=== PATIENT | male | born 1990 | race Caucasian/White ===

== ENCOUNTER 2017-10-03 13:50 | Emergency (ER) | payer OTHER ==
[~2017-10-03 13:50] MED LIST: IBU200 PO
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
[2017-10-03] MEDS ORDERED: IBUPROFEN 600 MG TAB PO ONE (14:10)
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
[2017-10-03] MEDS ORDERED: OXYC-373 PO (17:02)
[2017-10-03] MEDS ORDERED: IBUP600T22 PO (17:02)
--- NOTE | 2017-10-03 18:13 | RADIOLOGY IMAGING REPORT ---
FACILITY: [facility] - [place] PATIENT NAME: Jose Blount : 1990 MR: [id number] V: [id number] EXAM DATE: ORDERING PHYSICIAN: TORITO BALLARD TECHNOLOGIST: Location: [facility] Patient: Jose Blount : 1990 Visit/Account:[id number] Date of Sevice: 10/03/2017 EXAMINATION: CT left tibia and fibula without IV contrast HISTORY: Tibial plateau fracture. TECHNIQUE: Thin axial CT images of the left tibia and fibula were obtained without IV contrast, fro m the knee to the ankle, with coronal and sagittal 2D reconstructed images. One of the following dose optimization techniques was utilized in the performance of this exam: Autom ated exposure control; adjustment of the mA and/or kV according to the patient's size; or use of an i terative reconstruction technique. Specific details can be referenced in the facility's radiology C T exam operational policy. COMPARISON: Left knee and ankle radiographs of earlier today. FINDINGS: There is a fracture along the posterior margin of the lateral tibial plateau. Fracture fragment measu res 0.5 x 1.5 cm along the articular surface (AP x Trans). Slight impaction along the articular surfa ce measuring 1-2 mm. No extension into the tibial spines. The medial tibial plateau is intact. Partia lly visualized portions of the femoral condyles appear intact, but are only partially imaged. No evidence of additional fracture along the distal tibia or fibula. Normal alignment at the left ank le. Normal mineralization. IMPRESSION: 1. Minimally impacted fracture along the posterior margin of the lateral tibial plateau. 2. No evidence of additional fracture along the remainder of the left tibia or fibula. Report Dictated By: Mendoza Dallas MD at 10/03/2017 5:58 PM Report E-Signed By: Mendoza Dallas MD at 10/03/2017 6:08 PM WSN:[id number]
[2017-10-03 18:29] VITALS: BP 110/79
== END 2017-10-03 18:39 | disposition home or self-care (01) ==
LOC: ER 14:07
DX: S42.021A Displaced fracture of shaft of right clavicle, initial encounter for closed fracture (principal); S82.142A Displaced bicondylar fracture of left tibia, initial encounter for closed fracture
CPT/HCPCS: 71046; 99284; A4565

== ENCOUNTER → 2017-11-07 | Outpatient (CLI) | payer OTHER ==
[~2017-11-07] MED LIST changes: +IBUP600T22 PO; +OXYC-373 PO
== END ==
LOC: LAB 08:35
PROVIDERS: ATTEND Orthopaedic Surgery
DX: Z98.890 Other specified postprocedural states (principal)
CPT/HCPCS: 36415; 82040; 82247; 82310; 82374; 82435; 82565; 82947; 84075; 84132; 84155; 84295; 84450; 84460; 84520; 85027

== ENCOUNTER → 2017-11-13 | Outpatient (CLI) | payer OTHER ==
[~2017-11-13] MED LIST changes: +IOPAMIDOL 76% 75 ML INFUS BTL 75 ML ONE; +NS 0.9% 25 ML BAG 50 ML ONE
--- NOTE | 2017-11-13 13:52 | RADIOLOGY IMAGING REPORT ---
FACILITY: [facility] PATIENT NAME: Jose Blount : 1990 MR: [id number] V: [id number] EXAM DATE: ORDERING PHYSICIAN: BRUCE MCCARTNEY TECHNOLOGIST: [place] [facility] [place] : 1990 Visit/Account:[id number] Date of Sevice: 11/13/2017 CTA CHEST WW/O CNTR (PULM ANG) Provided history: Postop dyspnea Additional pertinent history: none TECHNIQUE: Pulmonary embolus protocol - Thin-slice axial imaging of the chest was performed during maximal pulmo nary arterial opacification with intravenous nonionic iodinated contrast. 3D coronal slab MIPs and 2D reconstructions in the coronal and sagittal planes were performed to aid in pulmonary embolus detect ion. Historian Research Assistant images have been stored on PACS. EKG gating: no Contrast: 75 ml Isovue 370 One of the following dose optimization techniques was utilized in the performance of this exam: Autom ated exposure control; adjustment of the mA and/or kV according to the patient's size; or use of an i terative reconstruction technique. Specific details can be referenced in the facility's radiology C T exam operational policy. COMPARISON STUDIES: No relevant priors FINDINGS: Angiographic Findings: Pulmonary arteries: There are no filling defects in the main, right, left, lobar, segmental or visual ized sub-segmental branches of the pulmonary arterial system Thoracic aorta: negative. Additional non-angiographic findings: Lungs / pleura / henreitta: negative Lower neck: negative Mediastinum: negative Heart / pericardium: negative Other Vessels: negative Body wall: negative Upper abdomen: negative Lymph nodes: negative Bones: negative IMPRESSION: Negative assessment. No evidence of acute pulmonary embolism and no acute pulmonary disease. Report Dictated By: Jose García MD at 11/13/2017 1:43 PM Report E-Signed By: Jose García MD at 11/13/2017 1:48 PM WSN:[email or web address]
== END ==
LOC: CT 12:47
PROVIDERS: ATTEND Physician Assistant
DX: R79.1 Abnormal coagulation profile (principal); R50.9 Fever, unspecified; R53.83 Other fatigue
CPT/HCPCS: 36415; 71275; 85651; 86140; 87040; Q9967

== ENCOUNTER → 2017-11-13 | Outpatient (REF) | payer OTHER ==
[~2017-11-13] MED LIST changes: -IOPAMIDOL 76% 75 ML INFUS BTL 75 ML ONE; -NS 0.9% 25 ML BAG 50 ML ONE
[2017-11-13 09:30] LABS: PLATELET COUNT, AUTOMATED 410 K/uL (150-450)
== END ==
LOC: ZZSTITCHES 09:17
PROVIDERS: ATTEND Physician Assistant
DX: R53.83 Other fatigue (principal); R50.9 Fever, unspecified
CPT/HCPCS: 36415; 82040; 82247; 82310; 82374; 82435; 82565; 82947; 83615; 84075; 84132; 84155; 84295; 84443; 84450; 84460; 84520; 85025; 85379; 86308

== ENCOUNTER → 2017-11-14 | Outpatient (REF) | payer OTHER | LOC: ZZPBJ 10:16 | PROVIDERS: ATTEND Orthopaedic Surgery | DX: M25.562 Pain in left knee (principal); M25.462 Effusion, left knee; Z98.890 Other specified postprocedural states | CPT/HCPCS: 84550; 87071; 87073; 87205; 89050; 89060 ==

== ENCOUNTER → 2017-11-23 | Outpatient (CLI) | payer OTHER ==
[2017-11-23 08:32] LABS: PLATELET COUNT, AUTOMATED 594 K/uL (150-450)
[2017-11-23 08:40] LABS: INR 1.06
== END ==
LOC: LAB 08:11
PROVIDERS: ATTEND Anesthesiology
DX: M24.662 Ankylosis, left knee (principal); Z98.890 Other specified postprocedural states
CPT/HCPCS: 36415; 82040; 82247; 82310; 82374; 82435; 82565; 82947; 84075; 84132; 84155; 84295; 84450; 84460; 84520; 85025; 85610; 85651; 86140

== ENCOUNTER → 2017-12-05 | Outpatient (CLI) | payer OTHER ==
[2017-12-05 14:45] LABS: PLATELET COUNT, AUTOMATED 511 K/uL (150-450)
[2017-12-05 14:49] LABS: INR 1.07
== END ==
LOC: LAB 14:17
PROVIDERS: ATTEND Orthopaedic Surgery
DX: M25.562 Pain in left knee (principal); M25.462 Effusion, left knee; Z98.890 Other specified postprocedural states
CPT/HCPCS: 36415; 82040; 82247; 82310; 82374; 82435; 82565; 82947; 84075; 84132; 84155; 84295; 84450; 84460; 84520; 85025; 85610; 85651; 86140

== ENCOUNTER → 2017-12-09 | Outpatient (CLI) | payer OTHER ==
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
== END ==
LOC: US 10:01
PROVIDERS: ATTEND Physician Assistant
DX: I82.492 Acute embolism and thrombosis of other specified deep vein of left lower extremity (principal)

== ENCOUNTER 2018-05-23 00:55 | Day surgery (SDC) | payer OTHER ==
[2018-05-22 14:09] LABS: PLATELET COUNT, AUTOMATED 287 K/uL (150-450)
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
[~2018-05-23] VITALS: Ht 185.4 cm; Wt 103.4 kg
[~2018-05-23 00:55] MED LIST changes: +DOCU-416 PO; +HYDR-653 PO; +OXYB10TA21 PO; +PHEN200T32 PO; +RIVA20TA PO; +TAMS0.4C25 PO
[2018-05-23] MEDS ORDERED: fentaNYL CITR 250 MCG/5 ML AMP ONE (08:07)
[2018-05-23] MEDS ORDERED: PROPOFOL EMUL(*) 10MG/ML 20 ML 20 ML ONE (08:08)
[2018-05-23] MEDS ORDERED: LIDOCAINE 2% IV 100 MG/5ML SYR ONE (08:08)
[2018-05-23 08:13] VITALS: BP 119/82
[2018-05-23] MEDS ORDERED: LEVOFLOXACIN/D5W*500 MG/100 ML 100 ML IVPB ONE (08:30)
[2018-05-23] MEDS ORDERED: LIDOCAINE/SOD BICARB 8.4% SYR ID ONE (08:30)
[2018-05-23] MEDS ORDERED: MIDAZOLAM 2 MG/2 ML VIAL IVP PRN (08:30)
[2018-05-23] MEDS ORDERED: NORMOSOL R SOLN(*) 1000 ML BAG 1,000 ML IV PRN (08:30)
[2018-05-23] MEDS ORDERED: FAMOTIDINE 20 MG TAB PO ONE (08:30)
--- NOTE | 2018-05-23 09:02 | RADIOLOGY IMAGING REPORT ---
FACILITY: [facility] PATIENT NAME: Jose Blount : 1990 MR: [id number] V: [id number] EXAM DATE: ORDERING PHYSICIAN: FLIP BEYER TECHNOLOGIST: Location: [facility] [place] Patient: Jose Blount : 1990 Visit/Account:[id number] Date of Sevice: 05/22/2018 ABDOMEN PELVIS ESWL CYSTO W/O HISTORY: KIDNEY STONES TECHNIQUE: Axial images acquired through the abdomen/pelvis. Coronal and sagittal reformatting also performed. No IV contrast administered.Dose Lowering Technique One of the following dose optimization techniques was utilized in the performance of this exam: Autom ated exposure control; adjustment of the mA and/or kV according to the patient's size; or use of an i terative reconstruction technique. Specific details can be referenced in the facility's radiology C T exam operational policy. COMPARISON: May 16, 2018 FINDINGS: Visualized lung bases: Negative. Hepatobiliary: Again noted is an elongated right lobe of the liver which is an anatomic variant Spleen: Negative. Adrenals: Negative. Pancreas: Negative. Kidneys ureters and bladder: There is a right ureteral stent in place. No evidence of right hydronep hrosis. Most of the UVC described calculi in the right renal collecting system are no longer seen. There is a single 1 x 3 mm calculus remaining in the lower pole calyx. There is a left ureteral stent in place. There is moderate left hydronephrosis with moderate perinep hric stranding.. There are two small 1 to 2 mm calculi seen immediately adjacent to the stent in the mid left ureter. One at the level of the mid body of L3 and one at the level of L3-4.. Six calculi remain in the left renal collecting system. The largest is in the lower pole calyx measuring 3 x 4 mm. Previously noted bladder calculus is no longer seen. Genitalia: Negative. GI: Negative. Vessels/spaces/nodes: Negative. Bones/soft tissues: Mild spondylotic changes L5-S1 Additional findings: None pertinent. IMPRESSION: There are bilateral ureteral stents in place which appear in good position. Most of the previously noted right renal calculi are no longer seen with a single 1 x 3 mm calculus r emaining in lower pole calyx of right kidney There is a moderate left hydronephrosis and moderate dilatation of the proximal half the left ureter. There are two small 1-2 mm calculi identified adjacent to the left ureteral stent in the mid left k idney, one at the level of L3 and one at the level of L3-4. There are six calculi remaining in the l eft renal collecting system, largest measuring 3 x 4 mm in the lower pole calyx Report Dictated By: Rosamaria Azevedo MD at 05/23/2018 8:41 AM Report E-Signed By: Rosamaria Azevedo MD at 05/23/2018 8:57 AM WSN:[email or web address]
[2018-05-23] MEDS ORDERED: DEXAMETHASONE SOD 4 MG/ML VIAL ONE (09:31)
[2018-05-23] MEDS ORDERED: KETOROLAC 30 MG/ML VIAL ONE (09:33)
[2018-05-23] MEDS ORDERED: ONDANSETRON 4 MG/2 ML VIAL ONE (09:33)
[2018-05-23] MEDS ORDERED: BELLADONNA ALK/OPIUM 60MG SUPP PR ONE (10:27)
[2018-05-23] MEDS ORDERED: TAMS0.4C70 PO (11:20)
[2018-05-23] MEDS ORDERED: DOCU-416 PO (11:20)
[2018-05-23] MEDS ORDERED: PHEN200T32 PO (11:21)
--- NOTE | 2018-05-23 11:37 | OPERATIVE REPORT 1 ---
EVENT DATE: May 23, 2018 SURGEON: Sunday Wesley MD ANESTHESIOLOGIST: Jonathan Mojica M.D. ANESTHESIA: General. FINANCIAL ADVISOR TRAINEE: [*] PREOPERATIVE DIAGNOSES 1. Left renal calculi. 2. Bilateral indwelling ureteral stents. POSTOPERATIVE DIAGNOSES 1. Left renal calculi. 2. Bilateral indwelling ureteral stents. PROCEDURE PERFORMED 1. Left extracorporeal shock wave lithotripsy. 2. Anesthetic cystoscopy with grasping and removal of bilateral ureteral stents. ESTIMATED BLOOD LOSS Minimal. IV FLUIDS Crystalloids. DRAINS None. COMPLICATIONS None. CONDITION Patient was taken to the recovery room awake and in stable condition. STATEMENT OF MEDICAL NECESSITY Patient is a 28-year-old white male who was noted to have bilateral renal and ureteral calculi after presenting with intermittent gross hematuria. Once week ago, he underwent bilateral ureteroscopy with laser fragmentation of ureteral stones and placement of bilateral internal double J stents. He also underwent treatment of several right stones with extracorporeal shock wave lithotripsy. Followup film today revealed excellent resolution of stones on the right side. He had a 1 x 2 mm remaining fragment in the lower pole. Otherwise, no calcifications could be identified. On the left side, he still has the untreated stones on that side, numbering 4 to 5 with the largest being approximately 4 mm in size in the lower pole. He is now being brought to the operating room for planned left extracorporeal shock wave lithotripsy treatment with removal of ureteral stents. DESCRIPTION OF OPERATION PERFORMED The patient was brought to the operating room and after general anesthetic was obtained he was placed supine on the lithotripsy table. His stones in the lower pole of the left kidney were visualized with two-plane fluoroscopy and placed in the lithotripsy cross-hairs. Treatment was begun at a power setting of 2 and gradually increase to a power setting of 3 over the course of the first 300 shocks. A three-minute pause was then performed and treatment resumed and power was gradually increased to a power of 7.5 over the course of the first 1,000 shocks. He received a total of 2,000 shocks to the left lower pole stone collection. Following this, the lithotripsy cross-hairs were placed on the smaller stone in the mid pole and 1,000 shocks were given to this area. Again, intermittent two-plane fluoroscopy was used during treatment to guide placement of the cross-hairs. After 3,000 shocks to the left kidney, no further stone or stone fragments could be identified. Therefore, lithotripsy was terminated and he was placed in the dorsal lithotomy position, prepped and draped in the usual sterile manner. Anesthetic cystoscopy was performed with the 21-Canadian rigid Andrea sheath and 30-degree lens. He had a normal appearing pendulous, bulbar, membranous and prostatic urethra. Upon entering his bladder, both stents were seen emanating from the respective ureteral orifices. First, the distal end of the left stent was grasped and the left stent was gently removed intact. The scope was then reintroduced and the right stent was removed intact as well. Following this, the scope was reintroduced. His ureteral orifice appeared normal. There was no significant hematuria from either orifice. The bladder was drained through the cystoscopic sheath. The scope was removed. A B and O suppository was given per rectally as the conclusion of the case. He was awake in the operating room and taken to the recovery area in stable condition. PLAN We will allow the patient to be discharged home today on Flomax, Colace, [place] and Pyridium. We will plan to see him in the Urology Clinic next week for the followup ultrasound to evaluate any residual hydronephrosis. If he is without significant symptoms and his ultrasound is normal, he will be cleared to proceed to work in [employer]. We will plan to perform a metabolic evaluation after he returns in several weeks. ELIZABETH
[2018-05-23 11:39] VITALS: BP 109/75
--- NOTE | 2018-05-23 11:43 | NUR ---
1139-pt arrives to ma from or on cart in sf position. vss. sbar report from denys patel. pt denies pain and nausea at this time. 1143-pt placed on room air at this time
[2018-05-23 11:46] VITALS: BP 108/80
[2018-05-23 11:48] VITALS: BP 105/73
== END 2018-05-23 11:39 | disposition home or self-care (01) ==
LOC: OR 00:55
PROVIDERS: ATTEND Urology
DX: N20.0 Calculus of kidney (principal)
CPT/HCPCS: 36415; 50590; 74176; 81001; 85025; 87088; J1100; J1885; J1956; J2001; J2405; J2704; J3010

== ENCOUNTER → 2018-05-28 | Outpatient (CLI) | payer OTHER ==
[~2018-05-28] MED LIST changes: +TAMS0.4C70 PO
--- NOTE | 2018-05-28 09:11 | RADIOLOGY IMAGING REPORT ---
FACILITY: [facility] PATIENT NAME: Jose Blount : 1990 MR: [id number] V: [id number] EXAM DATE: ORDERING PHYSICIAN: [employer] TECHNOLOGIST: Location: [facility] Patient: Jose Blount : 1990 Visit/Account:[id number] Date of Sevice: 05/28/2018 KIDNEYS EXAMINATION: Renal ultrasound HISTORY: History of stones/hydronephrosis COMPARISON: Comparison is made to a previous CT scan from 05/23/2018 FINDINGS: Kidneys: Right kidney- 9.5 x 6 x 4.5 cm, normal parenchymal thickness and echogenicity. There is an echogenic focus within the right kidney measuring 5 x 6 mm. This was seen as a possible stone by the ultrason ographer. There was not, however, a similar stone seen on the CT scan. There is a single small 2 mm stone in the lower pole of the left kidney on that CT scan Left kidney- 11 x 6 x 5.3 cm, normal parenchymal thickness and echogenicity. There are several echo genic foci compatible with renal stones corresponding to the multiple stones seen on the CT scan hallie uring up to 5 mm. Uniform and symmetric blood flow in each kidney by Doppler ultrasound. Hydronephrosis: none. Bladder: negative Abdominal aorta and IVC: patent by Doppler ultrasound. IMPRESSION: 1. Status post removal of bilateral renal stents. No hydronephrosis. Multiple small stones seen in the left kidney. Discrepancy between perceived stone on the right kidney and the CT scan. Report Dictated By: Jose Garcia MD at 05/28/2018 9:01 AM Report E-Signed By: Jose Garcia MD at 05/28/2018 9:07 AM WSN:[email or web address]
== END ==
LOC: US 00:50
PROVIDERS: ATTEND Urology
DX: N20.0 Calculus of kidney (principal); N13.30 Unspecified hydronephrosis
CPT/HCPCS: 76705

== ENCOUNTER → 2018-06-24 | Outpatient (CLI) | payer OTHER ==
--- NOTE | 2018-06-24 14:06 | RADIOLOGY IMAGING REPORT ---
FACILITY: [facility] [place] PATIENT NAME: Jose Blount : 1990 MR: [id number] V: [id number] EXAM DATE: ORDERING PHYSICIAN: [facility] TECHNOLOGIST: Location: [facility] Patient: Jose Blount : 1990 Visit/Account:[id number] Date of Sevice: 06/24/2018 HISTORY: Prior DVT. Currently on Xarelto US VENOUS LOWER EXT LT EXAMINATION: Unilateral lower extremity deep vein duplex Doppler ultrasound COMPARISON STUDIES: none FINDINGS: Grayscale compression, duplex and color Doppler interrogation of the left lower extremity deep veins from common femoral vein to proximal calf was performed. The greater saphenous vein was evaluated usi ng similar technique. Common femoral vein negative Femoral vein negative Deep femoral vein - negative Popliteal vein negative Visualized deep calf veins negative Greater saphenous vein in the proximal thigh negative Popliteal fossa: negative IMPRESSION: 1. Negative left leg for DVT 2. 3 x 1 cm lymph nodes seen in the left groin Report Dictated By: Jose Garcia MD at 06/24/2018 1:54 PM Report E-Signed By: Jose Garcia MD at 06/24/2018 1:57 PM WSN:[email or web address]
== END ==
LOC: US 13:01
DX: R59.0 Localized enlarged lymph nodes (principal); I82.402 Acute embolism and thrombosis of unspecified deep veins of left lower extremity

== ENCOUNTER → 2018-08-13 | Outpatient (CLI) | payer OTHER ==
--- NOTE | 2018-08-13 14:09 | RADIOLOGY IMAGING REPORT ---
[place] [facility] [place] Jose Blount : 1990 MR: [id number] V: [id number] EXAM DATE: ORDERING PHYSICIAN: FLIP [employer]YER TECHNOLOGIST: Location: [facility] [place] Patient: Jose Blount : 1990 Visit/Account:[id number] Date of Sevice: 08/13/2018 CT ABDOMEN PELVIS W/O CON HISTORY: Kidney stones TECHNIQUE: CT abdomen and pelvis without intravenous contrast. Contiguous axial images of the abdom en and pelvis was performed from the lung bases to the symphysis pubis. One of the following dose optimization techniques was utilized in the performance of this exam: Autom ated exposure control; adjustment of the mA and/or kV according to the patient's size; or use of an i terative reconstruction technique. Specific details can be referenced in the facility's radiology C T exam operational policy. CONTRAST: None. COMPARISON: CT scan 05/23/2018 FINDINGS: Visualized lung bases: Negative. Hepatobiliary: Negative. Spleen: Negative. Adrenals: Negative. Kidneys/: Ureteral stents to been removed. There are a few punctate nonobstructing stones in the left kidney measuring 1 to 2 mm maximally. Punctate 1 mm nonobstructing stone is noted superior pole right kidney. No obstructing ureteral stones. Pancreas: Negative. GI: Negative. Vessels/spaces/nodes: Small right lower quadrant mesenteric lymph nodes are likely reactive Bones/soft tissues: Negative. IMPRESSION: 1. Several punctate nonobstructing stones are noted left kidney. A single punctate nonobstructing s tone is noted in the right kidney. No obstructing renal or ureteral stones. Report Dictated By: Braden Barclay MD at 08/13/2018 1:57 PM Report E-Signed By: Braden Barclay MD at 08/13/2018 2:03 PM WSN:[email or web address]
== END ==
LOC: CT 07-16 01:58
PROVIDERS: ATTEND Urology
DX: N20.0 Calculus of kidney (principal)
CPT/HCPCS: 74176